=== PATIENT | female | born 1985 | race African-American/Black ===

== ENCOUNTER 2021-02-26 20:39 | Emergency (ER) | payer MEDICAID ==
[~2021-02-26] VITALS: Ht 167.6 cm; Wt 79.4 kg
[2021-02-26 20:55] VITALS: BP 111/52
[2021-02-26] MEDS ORDERED: NEOMYCIN-BACITRACIN-POLYM UNITDOSE PKG TOP OINT TOP ONE (21:30)
[2021-02-26] MEDS ORDERED: TETANUS-DIPTH-ACEL PERTUSSIS 0.5ML SYR Tdap IM ONE (22:00)
== END 2021-02-26 22:13 | disposition home or self-care (01) ==
LOC: ER 20:39
DX: S01.111A Laceration without foreign body of right eyelid and periocular area, initial encounter (principal); Z98.51 Tubal ligation status; W18.00XA Striking against unspecified object with subsequent fall, initial encounter; Y93.89 Activity, other specified; Y92.89 Other specified places as the place of occurrence of the external cause; Y99.8 Other external cause status
CPT/HCPCS: 12011; 90471; 90715; 99283; J2001